=== PATIENT | male | born 1965 | race Two or more races ===

== ENCOUNTER 2024-03-10 01:56 | Emergency (ER) | payer MEDICAID, OTHER ==
[~2024-03-10] VITALS: Ht 154.9 cm; Wt 68.6 kg
[2024-03-10 02:29] VITALS: BP 139/83; PULSE 51; RESP 14; TEMP 98
[2024-03-10] MEDS: TETRACAINE HCL 0.5% OPTH(EYE) SOLN 4ML RIGHTEYE ONE (03:39)
[2024-03-10] MEDS: FLUORESCEIN SOD OPTH TEST STRIP RIGHTEYE ONE (03:39)
[2024-03-10] MEDS ORDERED: OFL50TS OP (03:42)
[2024-03-10] MEDS: TETANUS-DIPTH-ACEL PERTUSSIS 0.5ML SYR Tdap IM ONE (05:06)
[2024-03-10] MEDS: ERYTHROMY OPTH OINT 5mg/gm 1gm or 3.5gm tube OP ONE (05:06)
[2024-03-10 05:13] VITALS: O2SAT 97
== END 2024-03-10 05:19 | disposition home or self-care (01) ==
LOC: ER 01:56
DX: S05.01XA Injury of conjunctiva and corneal abrasion without foreign body, right eye, initial encounter (principal); X58.XXXA Exposure to other specified factors, initial encounter; Y93.E1 Activity, personal bathing and showering; Y92.89 Other specified places as the place of occurrence of the external cause; Y99.8 Other external cause status
CPT/HCPCS: 90471; 90715